=== PATIENT | male | born 1985 | race Caucasian/White ===

== ENCOUNTER 2024-09-10 04:20 | Emergency (ER) | payer OTHER ==
[~2024-09-10] VITALS: Ht 170.2 cm; Wt 49.9 kg
[2024-09-10 04:24] VITALS: BP 140/90; PULSE 89; TEMP 98.3; O2SAT 99
[2024-09-10] MEDS ORDERED: NALO4SPR NS (06:00)
[2024-09-10 06:38] VITALS: BP 140/90; PULSE 89; TEMP 98.3; O2SAT 99
== END 2024-09-10 06:38 | disposition home or self-care (01) ==
LOC: MED 04:20
DX: T40.2X1A Poisoning by other opioids, accidental (unintentional), initial encounter (principal); Z79.899 Other long term (current) drug therapy; Y92.89 Other specified places as the place of occurrence of the external cause
CPT/HCPCS: 99283